=== PATIENT | female | born 1990 | race Two or more races ===

== ENCOUNTER 2021-12-23 11:58 | Emergency (ER) | payer BC ==
[~2021-12-23] VITALS: Ht 154.9 cm; Wt 55.8 kg
[~2021-12-23 11:58] MED LIST: AMOX1TAB58 PO; POTA10TA12 PO
[2021-12-23 12:03] VITALS: BP 139/96
[2021-12-23] MEDS ORDERED: CEPH500C PO (13:12)
[2021-12-23] MEDS ORDERED: DIPHTH,PERTUSS(ACELL),TET TOX 0.5 ML DISP.SYRIN. VAX IM ONE (13:15)
--- NOTE | 2021-12-23 13:18 | PHYS DOC ---
Past Medical History Past Medical History: Other Additional Past Medical Histor: COVID IN JUNE 2020 Past Surgical History: No Surgical History Smoking Status: Never Smoker Alcohol Use: None General Adult EDM: Chief Complaint: LACERATION/AVULSION HPI: HPI: Patient is a 31 year old female with no past medical history presents with left thumb laceration. Patient states that it was cut about 16 hours ago, the family placed a homeopathic remedy on top of the wound which appears black and tarry. It now has slight erythema, it is leaking a little bit of blood. It is open. Otherwise she has no other symptoms, no systemic symptoms, no fever no chills no tachycardia. Vital signs stable. Review of Systems: Review of Systems: Constitutional: Denies fever or chills. [] Eyes: Denies change in visual acuity. [] HENT: Denies nasal congestion or sore throat. [] Respiratory: Denies cough or shortness of breath. [] Cardiovascular: Denies chest pain or edema. [] GI: Denies abdominal pain, nausea, vomiting, bloody stools or diarrhea. [] : Denies dysuria. [] Musculoskeletal: Denies back pain or joint pain. [] Integument: Positive laceration at left thumb. [] Neurologic: Denies headache, focal weakness or sensory changes. [] Endocrine: Denies polyuria or polydipsia. [] Lymphatic: Denies swollen glands. [] Psychiatric: Denies depression or anxiety. [] Heart Score: C/O Chest Pain: No Risk Factors: Risk Factors: DM, Current or recent (<one month) smoker, HTN, HLP, family history of CAD, obesity. Risk Scores: Score 0 - 3: 2.5% MACE over next 6 weeks - Discharge Home Score 4 - 6: 20.3% MACE over next 6 weeks - Admit for Clinical Observation Score 7 - 10: 72.7% MACE over next 6 weeks - Early Invasive Strategies Current Medications: Current Medications Medications (Trade) Dose Ordered Sig/Adali Start Time Stop Time Status Last Admin Dose Admin Diphtheria/ Tetanus/Acell Pertussis (Boostrix) 0.5 ml ONCE ONCE 12/23/21 13:15 12/23/21 13:16 UNV Allergies: Allergies: Allergies Coded Allergies Type Severity Reaction Last Updated Verified No Known Drug Allergies 10/24/20 No Physical Exam: PE: Constitutional: Well developed, well nourished, no acute distress, non-toxic appearance. [] HENT: Normocephalic, atraumatic, bilateral external ears normal, oropharynx moist, no oral exudates, nose normal. [] Eyes: PERRLA, EOMI, conjunctiva normal, no discharge. [] Neck: Normal range of motion, no tenderness, supple, no stridor. [] Cardiovascular:Heart rate regular rhythm, no murmur [] Lungs & Thorax: Bilateral breath sounds clear to auscultation [] Abdomen: Bowel sounds normal, soft, no tenderness, no masses, no pulsatile masses. [] Skin: Left thumb base laceration about 3 cm, passed to the dermis, hypodermis exposed, scant amount of blood. Black tarry material infiltrated within the wound and surrounding areas.. [] Back: No tenderness, no CVA tenderness. [] Extremities: No tenderness, no cyanosis, no clubbing, ROM intact, no edema. [] Neurologic: Alert and oriented X 3, normal motor function, normal sensory function, no focal deficits noted. [] Psychologic: Affect normal, judgement normal, mood normal. [] Current Patient Data: Vital Signs: Vital Signs Date Time Temp Pulse Resp B/P (MAP) Pulse Ox O2 Delivery O2 Flow Rate FiO2 12/23/21 12:03 98.5 109 20 139/96 (110) 95 Room Air 98.5 EKG: EKG: [] Radiology/Procedures: Radiology/Procedures: [] Impression: 31-year-old female with thumb laceration secondary to knife Course & Med Decision Making: Course & Med Decision Making Pertinent Labs and Imaging studies reviewed. (See chart for details) 31-year-old female with thumb laceration due to knife, patient states that she was pulling the knife out of the sheath when it cut her. Seen and examined by myself. Patient is hemodynamically stable, this occurred 16 hours ago, with a combination of the delayed presentation as well as infiltration of unknown homeopathic substance that is black and tarry, tertiary wound healing will be the choice of treatment for this patient. I explained that I cannot suture this wound for risk of infection, there is already some surrounding erythema. I will prescribe her Keflex for bacterial control. I injected the wound with lidocaine so that patient would be able to have her wound cleaned, the wound was cleaned and dressed by my nurse to take out the homeopathic black tarry substance, which was removed. Patient given instructions to put triple antibiotic daily, and follow-up with primary care physician in 1 week. Patient understood and stated that she would follow-up, all questions answered, hemodynamically stable at time of discharge. Tetanus prophylaxis given. Brando Disclaimer: Dragon Disclaimer: This electronic medical record was generated, in whole or in part, using a voice recognition dictation system. Departure Departure Impression: Primary Impression: Finger laceration Disposition: HOME / SELF CARE / HOMELESS Condition: GOOD Patient Instructions: Laceration Care, Adult, [id number] Additional Instructions: Follow-up with your primary care physician in about 5 days, take all of the antibiotics that have been prescribed to you. Keep the wound clean and dry. Do not use home remedies on the wound. I recommend you use triple antibiotic or Neosporin on the wound once daily. You should cover it with a Band-Aid. Scripts Cephalexin (KEFLEX) 500 Mg Capsule 500 MG PO TID for 7 Days, #21 CAP Prov: NAMRATA THIBODEAUX MD 12/23/21 NAMRATA THIBODEAUX MD December 23, 2021 13:18
[2021-12-23] MEDS ORDERED: LIDOCAINE 2% Multi-Dose 20 ML VIAL. IJ ONE (14:15)
[2021-12-23] MEDS ORDERED: BACITRACIN TOPICAL OINT PACKET. TP ONE (14:45)
== END 2021-12-23 15:00 | disposition home or self-care (01) ==
LOC: ER 11:58
DX: S61.012A Laceration without foreign body of left thumb without damage to nail, initial encounter (principal); W26.0XXA Contact with knife, initial encounter; Y93.89 Activity, other specified; Y92.89 Other specified places as the place of occurrence of the external cause; Y99.8 Other external cause status
CPT/HCPCS: 90471; 90715; 99283-25